=== PATIENT | female | born 1985 | race Hispanic/Latino ===

== ENCOUNTER 2025-04-19 14:26 | Emergency (ER) | payer SELFPAY ==
[2025-04-19 15:11] VITALS: BP 122/88
[2025-04-19 15:12] VITALS: BMI 33.7
--- NOTE | 2025-04-19 15:17 | CON.MD ---
Consultation - Medical
-
39 yr old Lebanese-speaking female, presenting on 302 petitioned by mobile crisis after being called with concerns by pts brother. Pt reportedly has been not attending to her hygiene, has not been sleeping, talking to self and behaving bizarrely.
Pt is difficult to interview - to note, she intermittently speaks in [place] fairly well, but then switches back to Lebanese and will not respond to [place] anymore. Pt notably paranoid, will often stop speaking suddenly and start looking at staff
suspiciously - guarded, difficult to obtain much meaningful information from.
She denies a hx of mental health outside of 'some anxiety and depression' for which she reports she had appointments for but never ended up going to. Denies hx of inpatient, however it is not clear how reliable this is given the notable paranoia and
guarded affect. Pt does admit to not being able to sleep, 'tossing and turning' - pt also reported some IOR relating to her TV, however was difficult to obtain clear detail about this. Security Software Engineer had difficulty making sense of pts statements. When
stock preparation supervisor attempted to clarify, pt stopped responding and appeared suspicious. Attempted several times, but pt remained silent and would not provide further information.
Pt preoccupied with getting wet wipes and pads as she is menstruating, however multiple attempts to discuss this with her resulted in pt becoming suspicious and tense. Pt was offered to be given supplies, however would continue to perseverate on
needing these supplies and was becoming more agitated at a point - pt was redirected and settled, but did intermittently continue to perseverate on the topic.
Attempted to discuss concerns of pt being unable to care for self but pt was unable to engage in this meaningfully as responses generally were either too disjointed or pt would simply not answer and appear suspicious.
Unspecified psychosis (r/o bipolar d/o w/ current zay)
MSE: female, fair eye contact, speech logorrheic & at times pressured/loud. Mood is frustrated, affect is constricted but at times can be labile. Thought process is tangential/circumstantial. Denies AVH at this time (AH reported in 302), but with
notable paranoia & some IOR. Memory not formally tested. Grossly oriented. Insight/judgement poor.
302 upheld, bed search pending
Zydis 5mg now + 5mg HS
Ativan 2mg now
Zydis 5mg BIDPRN acute agitation + IM ordered for PO refusal
[2025-04-19 15:37] LABS: Hematocrit 39.4 % (37.0-47.0); Hemoglobin 13.2 g/dL (12.0-16.0); Mean Corp Hgb Conc. 33.5 g/dL (33.0-37.0); Mean Corpuscular Volume 85.3 fL (81.0-99.0); Nucleated Red Blood Cells % 0 %; Platelet Count 339 10^3/uL (130-400); Red Cell Dist. Width 12.9 % (11.5-14.5)
[2025-04-19 15:47] LABS: HCG, Serum Qualitative Screen Negative
[2025-04-19 15:59] LABS: Blood Urea Nitrogen 9 mg/dl (7-17); Calcium 9.1 mg/dl (8.4-10.2); Carbon Dioxide 22 mmol/L (22-30); Chloride 104 mmol/L (98-107); Estimated Creatinine Clearance 99 ml/min; Glucose 117 mg/dl (70-99); Potassium 3.6 mmol/L (3.5-5.1); Sodium 138 mmol/L (135-145); eGFR > 60.00
[2025-04-19] MEDS: ATIVAN 2 MG PO (16:18)
[2025-04-19] MEDS: ZYPREXA ZYDIS (ORALLY DISINTEGRATING) 5 MG PO (16:18)
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
== END 2025-04-19 21:15 ==
LOC: EMR 14:26
PROVIDERS: EMERGENCY PHYSICIAN Emergency Medicine
DX: F29 Unspecified psychosis not due to a substance or known physiological condition (principal); F32.9 Major depressive disorder, single episode, unspecified; Z91.148 Patient's other noncompliance with medication regimen for other reason
CPT/HCPCS: 99285; 80048; 80306; 82077; 84703; 85025

== ENCOUNTER 2025-06-12 05:38 | Emergency (ER) | payer SELFPAY ==
[2025-06-12 06:00] VITALS: BP 132/92
--- NOTE | 2025-06-12 06:16 | ED.GENMED ---
History of Present Illness
General
Chief Complaint: Musculo-Skeletal Complaint
Source: patient
Exam Limitations: none
Time Seen by Provider: 06/12/25 06:06
History of Present Illness
History of Present Illness:
See MDM
Past History
Past History
ED Past Medical History: Psychiatric
ED Past Surgical History: None
Social History
Tobacco: Non-smoker
Alcohol: None (Patient will not answer patient will not answer)
Personal: Other
Living: with family
Phy Exam
Physical Exam
Physical Exam:
See MDM
Course
Orders/Labs/Results
Orders:
Orders
06/12/25 06:15
Acetaminophen [Tylenol] 1,000 mg PO NOW STA
Test Result ONCE
06/12/25 06:18
Complete Blood Count/With Diff Urgent
Comprehensive Metabolic Panel Urgent
HCG, Serum Qualitative Screen Urgent
Abnormal Lab Results
06/12/25
06:18
WBC 11.6 H 10^3/uL
(4.8-10.8)
Hct 36.0 L %
(37.0-47.0)
Abs Immat Gran (auto) 0.1 H 10^3/uL
(0-0.05)
Absolute Neuts (auto) 8.0 H 10^3/uL
(1.4-6.5)
Absolute Monos (auto) 1.1 H 10^3/uL
(0.1-0.6)
Immature Gran % 0.9 H %
(0-0.5)
Lymphocytes % 19.7 L %
(20.5-51.1)
Glucose 118 H mg/dl
(70-99)
06/12/25 06:18
06/12/25 06:18
Vital Signs
Initial and Last Documented VS:
Initial Vital Signs
Temp Pulse Ox
98.1 F 97
06/12/25 05:49 06/12/25 05:49
Last Documented Vital Signs
Temp BP Pulse Ox
98.1 F 132/92 96
06/12/25 05:49 06/12/25 06:00 06/12/25 06:45
MDM/Problems Addressed
Differential Diagnosis Includes:
Note:
CHIEF COMPLAINT(S)
Body pain and concern about possible .
HISTORY OF PRESENT ILLNESS
The patient is a 39-year-old female presenting with a chief complaint of generalized body pain, described as feeling similar to having a fever throughout her entire body, although she does not have a fever. She reports recent activity associated
with moving to a new apartment due to social and legal issues. Additionally, the patient expressed concerns about a possible following a recent relationship, mentioning that she is taking a ' pill.' She requested intravenous
fluids, which she associates with vitamins and wellness, despite being able to drink fluids orally.
PHYSICAL EXAM
General: Alert, no acute distress.
Skin: Warm, dry.
Head: Normocephalic, atraumatic
Neck: Appears supple, trachea midline.
Eyes, Ears, Nose, Mouth, and Throat: Moist mucous membranes
Cardiovascular: No signs of cyanosis
Respiratory: Respirations are non-labored.
Abdomen: Non-distended
Musculoskeletal: No deformities
Neurological: No focal neurological deficit observed.
Psychiatric: Cooperative, appropriate mood and affect.
SOCIAL DETERMINANTS OF HEALTH
The patient mentions relocation to a new apartment due to ongoing social and legal challenges, specifically referring to social studies department chair involvement and a court case.
PLAN
Blood work to confirm or rule out . Advising the patient to consume oral fluids instead of receiving intravenous fluids, as they are unnecessary given her current condition.
DIFFERENTIAL DIAGNOSIS
The Differential Diagnosis includes, in no particular order and is not limited to:
- Generalized Anxiety Disorder
- Somatic Symptom Disorder
- Hypochondriasis
- Acute Stress Reaction
-
- Viral Syndrome
- Influenza
- Nutritional Deficiency
- Domestic Abuse
- Psychosomatic Response
SUMMARY OF ENCOUNTER
The patient was seen in the emergency department primarily for generalized body pain and concern about potential . After discussing her symptoms and recent life stresses, it was determined that the pain is not due to any acute medical
condition requiring emergency intervention, and her request for intravenous fluids was deemed unnecessary. Instead, she was advised to drink fluids orally. Blood work is planned to rule out , given her concern about a recent sexual
relationship and contraception use.
ASSESSMENT
The patient is primarily dealing with generalized body pain likely exacerbated by her social and environmental stressors, coupled with anxiety about a potential .
PATIENT EDUCATION AND COUNSELING
The patient was informed of the unnecessary nature of intravenous fluids in her case and reassured about the general safety of her condition. Counseling included advice on proper hydration and addressing underlying social stressors.
FOLLOW-UP INSTRUCTIONS
The patient is instructed to follow up for results of the test and to seek additional support for her social and legal circumstances as needed.
MEDICAL DECISION MAKING
- Complexity of Data Reviewed: Chronic conditions affecting care not specifically mentioned beyond social and environmental stressors, which influence patient behavior and health literacy.
- Data:
* Category 1: Blood work ordered to determine status.
- Risk: Prescription medication for fluid management was unnecessary and not prescribed. Risks associated with inadequate housing and social instability were discussed as part of broader health education.
SUMMARY OF ENCOUNTER
The patient, a 39-year-old female, presented with generalized myalgias and concern about possible . She requested intravenous fluids despite being well-hydrated upon physical examination. Blood work was conducted, revealing no clinically
relevant abnormalities. The primary concern for the patient was whether she was .
ASSESSMENT
The patient is primarily experiencing generalized myalgias with anxiety over potential , which does not require emergency intervention.
PLAN
Blood work was conducted to investigate concerns. The patient is advised to maintain oral hydration.
INDEPENDENT REVIEW OF LABS AND INTERPRETATION OF TESTS
My independent review of the lab work indicates no clinically relevant abnormalities.
PATIENT EDUCATION AND COUNSELING
The patient was informed that intravenous fluids were unnecessary and reassured about the non-emergent nature of her condition. The importance of continuing oral hydration and addressing her concerns was discussed.
FOLLOW-UP INSTRUCTIONS
The patient is advised to follow up with her primary care provider and was informed about return precautions.
MEDICATION RECONCILIATION
Prescription medication for fluid management was not provided, as the patients hydration status was adequate.
MEDICAL DECISION MAKING
- Number and Complexity of Problems Addressed: Chronic conditions affecting care include anxiety about potential and generalized myalgias. Differential Diagnosis includes Generalized Anxiety Disorder, Somatic Symptom Disorder, Acute Stress
Reaction, , Viral Syndrome, and Nutritional Deficiency.
- Data:
Category 1: Blood work was ordered to determine status and revealed no clinically relevant abnormalities.
DIAGNOSIS
- Generalized Myalgia (ICD-10: M79.1)
*Pulse Oximetry
SaO2: 97
Patient hypoxic: no
*Critical Care Note
Total Time (30-74mins, 75-104mins- exclusive of procedures): Not Applicable
ED Attending Note
-
Portions of this chart may have been created with voice recognition software.� Occasional wrong word or��sound alike� substitutions may have occurred due to the inherent limitations of voice recognition software.
Discharge Plan
Departure
Patient Disposition: Home (Routine Discharge)
Date of Disposition: 06/12/25
Time of Disposition: 07:14
Patient with high blood pressure during this ER visit?: No
Discharge Problem:
Myalgia
Activity Restrictions/Additional Instructions:
Please return for any worsening symptoms.
You may return at any time if you have further concerns.
Please follow up with your doctor at the first available appointment, preferably this week.
Interventions
Interventions:
*Risk Screen - Suicide Last Done: 06/12/25 05:44
*General Assessment Last Done: 06/12/25 05:44
*Neglect/Abuse Screening Last Done: 06/12/25 05:44
*ED- Fall Risk Assessment Last Done: 06/12/25 05:44
*ED COVID-19 Vaccine History Last Done: 06/12/25 05:44
*ED Influenza Vaccine History Last Done: 06/12/25 05:44
ED-Musculoskeletal Assessment Last Done: 06/12/25 05:44
Discharge Date and Time
Print Language: [place]
[2025-06-12] MEDS: TYLENOL 1000 MG PO (06:17)
[2025-06-12 06:31] LABS: Hematocrit 36.0 % (37.0-47.0); Hemoglobin 12.0 g/dL (12.0-16.0); Mean Corp Hgb Conc. 33.3 g/dL (33.0-37.0); Mean Corpuscular Volume 83.9 fL (81.0-99.0); Nucleated Red Blood Cells % 0 %; Platelet Count 338 10^3/uL (130-400); Red Cell Dist. Width 12.9 % (11.5-14.5)
[2025-06-12 06:52] LABS: HCG, Serum Qualitative Screen Negative
[2025-06-12 07:06] LABS: ALT (SGPT) 13 U/L (0-35); AST (SGOT) 25 U/L (14-36); Alkaline Phosphatase 93 U/L (38-126); Blood Urea Nitrogen 11 mg/dl (7-17); Calcium 9.1 mg/dl (8.4-10.2); Carbon Dioxide 25 mmol/L (22-30); Chloride 106 mmol/L (98-107); Glucose 118 mg/dl (70-99); Potassium 3.9 mmol/L (3.5-5.1); Sodium 138 mmol/L (135-145); Total Protein 7.5 g/dl (6.3-8.2); eGFR > 60.00
[2025-06-12 07:12] LABS: Albumin 4.1 g/dl (3.5-5.0)
[2025-06-12 07:25] VITALS: BP 130/86
== END 2025-06-12 07:30 | disposition home or self-care (01) ==
LOC: EMR 05:38
PROVIDERS: EMERGENCY PHYSICIAN Student in an Organized Health Care Education/Training Program
DX: M79.10 Myalgia, unspecified site (principal); F41.9 Anxiety disorder, unspecified; Z65.3 Problems related to other legal circumstances; Z65.8 Other specified problems related to psychosocial circumstances
CPT/HCPCS: 99283; 80053; 84703; 85025